=== PATIENT | female | born 2000 | race Hispanic/Latino ===

== ENCOUNTER → 2024-06-23 13:37 | Outpatient (CLI) | payer OTHER, SELFPAY ==
--- NOTE | 2024-06-23 13:38 | DI.US.S_ITS ---
PROCEDURE: US OB >= 14 WEEKS FETUS INDICATIONS: 20 wk anatomy scan OUTSIDE/PRIOR DATING DATA: Last menstrual period (LMP): 02/08/24. LMP-based estimated date of delivery (JOCELYN): 11/14/24. First dating scan (date and location): 04/14/24. Estimated date of delivery (JOCELYN) from first dating scan: 11/16/24. TECHNIQUE: Real-time scanning was performed of the fetus, with image documentation and biometric measurements. Endovaginal scanning: Not needed COMPARISON: None. FINDINGS: General: A single living intrauterine gestation is present. Presentation: Transverse head left. Placenta: Placental position is posterior , without previa. Amniotic fluid index: 14.3 cm, normal range is 5-24 cm. Single deepest vertical pocket is 4.3 cm. heart rate: 144 beats per minute. Maternal cervical canal: 3.3 cm long. Normal lower limit is 2.5 cm. biometrics: Biparietal diameter: 4.5 cm, 19 weeks 4 days Head circumference: 16.0 cm, 18 weeks 6 days Abdominal circumference: 14.8 cm, 20 weeks 1 day Femur length: 3.2 cm, 20 weeks 0 days Clinically estimated gestational age: 19 weeks 3 days Composite gestational age from present scan: 19 weeks 5 days Estimated weight and percentile: 322 g, 75th percentile Anatomic survey: Neuro: Ventricles are non-dilated at less than 10 mm. Cisterna magna is normal at 3-11 mm. Cerebellum is normal in size and morphology. Nuchal skin fold: Normal at less than 6 mm between 14-21 weeks gestational age. Face: Nose and lips, facial profile are normal. Spine: No evidence for spina bifida. Heart: 4-chambered heart is present, with normal ventricular outflow tracts. Diaphragm: Diaphragm is intact. Stomach: Left-sided stomach is present. Kidneys: No hydronephrosis. Normal is less than 5 mm in 2nd trimester, less than 7 mm in 3rd trimester. Cord: 3-vessel cord has orthotopic insertion. Bladder: Normal in size. Extremities: All 4 extremities identified. IMPRESSION: Single living intrauterine gestation documented with appropriate interval growth and with the delivery date projected to be centered on 11/16/24. Normal survey of anatomy. We strive to produce accurate, complete, and clear reports of imaging services. To assist us in improving patient care, this report was composed using standard report templates and voice recognition software. Therefore, it may contain abnormal punctuation, insertions and/or omissions. Occasional wrong-word or sound-alike substitutions may occur. Though we review the report and make efforts to correct it, we do recommend that the report be read carefully in proper context to recognize any text inaccuracies. Dictated by: Deonte Minor M.D. on 06/23/2024 at 16:40 Approved by: Deonte Minor M.D. on 06/23/2024 at 16:43
== END ==
PROVIDERS: PCP Family Medicine; Referring Provider Student in an Organized Health Care Education/Training Program; Visit Provider Student in an Organized Health Care Education/Training Program
DX: Z34.02 Encounter for supervision of normal first pregnancy, second trimester (principal); Z3A.19 19 weeks gestation of pregnancy
CPT/HCPCS: 76811

== ENCOUNTER → 2024-07-07 11:06 | Outpatient (CLI) | payer OTHER, SELFPAY ==
[2024-07-07 12:21] LABS: Add Manual Diff / Slide Review NO; Basophils Absolute Auto 0 /uL (0-100); Basophils Percent Auto 0.3 % (0-2); Eosinophils Absolute Auto 100 /uL (0-450); Eosinophils Percent Auto 1.1 % (2-4); Hematocrit 32.3 % (36-46); Hemoglobin 11.3 g/dL (12.0-16.0); Lymphocytes Absolute Auto 2100 /uL (1100-4500); Lymphocytes Percent Auto 24.2 % (25-40); Mean Corpuscular HGB Conc 34.9 % (30-36); Mean Corpuscular Volume 88.8 fL (80-100); Monocytes Absolute Auto 700 /uL (0-900); Monocytes Percent Auto 7.6 % (3-14); Neutrophils Absolute Auto 5800 /uL (1500-7000); Neutrophils Percent Auto 66.8 % (50-75); Platelet Count 281 X10^3/uL (150-400); Red Blood Cell Count 3.64 X10^6/uL (4.0-5.2); Red Cell Distribution Width 13.2 % (11.6-14.8); White Blood Cell Count 8.6 X10^3/uL (4.5-11.0)
[2024-07-07 14:00] LABS: Appearance Urine UA CLEAR; Bilirubin Urine UA NEGATIVE (NEGATIVE); Color Urine UA YELLOW; Glucose Urine UA NEGATIVE (Negative); Ketones Urine UA NEGATIVE (NEGATIVE); Leukocyte Esterase Urine UA 2+ (NEGATIVE); Nitrite Urine UA NEGATIVE (Negative); Occult Blood Urine UA NEGATIVE (Negative); Protein Urine UA NEGATIVE (Negative); Specific Gravity Urine UA <=1.005 (1.000-1.035); Urobilinogen Urine UA 0.2 E.U./dL (0.2)
[2024-07-07 14:20] LABS: Bacteria Urine Many (>30); Culture Indicated Urine Cult Not Indicated; RBC Urine None Seen (0-5/HPF); Squamous Epithelial Cell Urine 0-1 /HPF (0-5/HPF); Urine Volume 10mL (spun); WBC Urine 1-5/HPF (0-5/HPF)
[2024-07-07 22:15] LABS: Hepatitis B Surface Antigen NEGATIVE s/c (NEGATIVE); Rubella Antibody IgG 7.5 IU/mL (>15)
[2024-07-07 23:13] LABS: HIV 1 & 2 Ab/Ag 4th Gen Combo NEGATIVE (NEGATIVE); Hep C Virus Ab w/Reflex Quant NEGATIVE s/c (NEGATIVE)
[2024-07-08 07:09] LABS: RPR Screen Non Reactive (Non Reactive)
[2024-07-08 09:13] LABS: Varicella IgG Antibody Reactive (Non Reactive)
[2024-07-10 14:08] LABS: AFP, Serum 96.3 ng/mL (.); Calc Gestational Age Ultrasound (.); Estriol, Free 2.64 ng/mL (.); Inhibin A, MoM 1.78 (.); Maternal Ethnicity Other (.); Maternal Weight 128 lbs (.); Number of Fetuses No (.); OSBR Risk 1 IN 426 (.); Results Report (.); Test Results *Screen Negative* (.); hCG, MoM 0.83 (.); hCG, Serum 31347 mIU/mL (.)
== END ==
PROVIDERS: PCP Family Medicine; Referring Provider Student in an Organized Health Care Education/Training Program; Visit Provider Student in an Organized Health Care Education/Training Program
DX: Z34.00 Encounter for supervision of normal first pregnancy, unspecified trimester (principal); Z3A.17 17 weeks gestation of pregnancy
CPT/HCPCS: 36415; 80055; 81003; 81015; 82105; 82677; 84702; 86336; 86787; 86803; 86850; 86900; 86901; 87086; 87389

== ENCOUNTER → 2024-08-04 07:33 | Outpatient (CLI) | payer OTHER, SELFPAY ==
[2024-08-04 09:42] LABS: Hematocrit 34.3 % (36-46); Hemoglobin 11.7 g/dL (12.0-16.0)
[2024-08-04 11:03] LABS: GTT (PREG) 1 Hour PP 50gm Dose 56 mg/dL (76-139)
== END ==
PROVIDERS: PCP Family Medicine; Referring Provider Student in an Organized Health Care Education/Training Program; Visit Provider Student in an Organized Health Care Education/Training Program
DX: Z34.92 Encounter for supervision of normal pregnancy, unspecified, second trimester (principal); Z3A.24 24 weeks gestation of pregnancy
CPT/HCPCS: 82950; 85014; 85018

== ENCOUNTER → 2024-09-19 10:50 | Outpatient (CLI) | payer OTHER, SELFPAY | PROVIDERS: PCP Family Medicine; Visit Provider Student in an Organized Health Care Education/Training Program | DX: R39.89 Other symptoms and signs involving the genitourinary system (principal) | CPT/HCPCS: 87086; 87210 ==

== ENCOUNTER → 2024-10-17 08:58 | Outpatient (CLI) | payer OTHER, SELFPAY ==
[2024-10-18 08:55] LABS: Strep Grp B PCR NEG for Grp B Strep
== END ==
PROVIDERS: PCP Family Medicine; Visit Provider Student in an Organized Health Care Education/Training Program
DX: Z3A.36 36 weeks gestation of pregnancy (principal)
CPT/HCPCS: 87653

== ENCOUNTER → 2024-10-17 11:04 | Outpatient (CLI) | payer OTHER, SELFPAY ==
[2024-10-17 12:59] LABS: Alanine Aminotransferase 115 IU/L (<35); Albumin 3.5 g/dL (3.5-5.0); Albumin Globulin Ratio 1.3 (1.0-2.8); Alkaline Phosphatase 207 U/L (38-126); Aspartate Aminotransferase 72 IU/L (14-36); BUN Creatinine Ratio 14.3 (6-22); Bilirubin Total 0.6 mg/dL (0.2-1.3); Blood Urea Nitrogen 7 mg/dL (7-17); Calcium 9.3 mg/dL (8.4-10.2); Carbon Dioxide 19 mmol/L (22-32); Chloride 108 mmol/L (98-107); Estimated Glomerular Filt Rate > 60 mL/min (>60); Globulin 2.8 g/dL (1.7-4.1); Glucose 83 mg/dL (70-100); HEMOLYSIS < 15 (0-50); Potassium 4.3 mmol/L (3.4-5.1); Sodium 135 mmol/L (137-145); Total Protein 6.3 g/dL (6.3-8.2)
[2024-10-17 17:08] LABS: Add Manual Diff / Slide Review NO; Basophils Absolute Auto 0 /uL (0-100); Basophils Percent Auto 0.4 % (0-2); Eosinophils Absolute Auto 0 /uL (0-450); Eosinophils Percent Auto 0.3 % (2-4); Hemoglobin 13.3 g/dL (12.0-16.0); Lymphocytes Absolute Auto 1700 /uL (1100-4500); Mean Corpuscular HGB Conc 34.1 % (30-36); Monocytes Absolute Auto 400 /uL (0-900); Monocytes Percent Auto 6.2 % (3-14); Neutrophils Absolute Auto 5000 /uL (1500-7000); Neutrophils Percent Auto 69.1 % (50-75); Platelet Count 276 X10^3/uL (150-400); Red Blood Cell Count 4.43 X10^6/uL (4.0-5.2); White Blood Cell Count 7.2 X10^3/uL (4.5-11.0)
[2024-10-17 17:15] LABS: Lactate Dehydrogenase 216 U/L (120-246)
[2024-10-17 17:25] LABS: Appearance Urine UA CLEAR; Bilirubin Urine UA NEGATIVE (NEGATIVE); Color Urine UA YELLOW; Glucose Urine UA NEGATIVE (Negative); Ketones Urine UA NEGATIVE (NEGATIVE); Leukocyte Esterase Urine UA 2+ (NEGATIVE); Nitrite Urine UA NEGATIVE (Negative); Occult Blood Urine UA NEGATIVE (Negative); Protein Urine UA NEGATIVE (Negative); Urobilinogen Urine UA 0.2 E.U./dL (0.2)
[2024-10-17 17:29] LABS: Creatinine Urine Random 30.24 mg/dL; Protein (Total) Urine Random 15 mg/dL (0-12); Protein Creatinine Ratio Urine 0.49 GRAM/24H
[2024-10-17 17:37] LABS: pH Urine UA 7.5 (4.5-8.0)
[2024-10-17 18:08] LABS: Bacteria Urine Few (2-10); Culture Indicated Urine Specimen Cultured; RBC Urine None Seen (0-5/HPF); Squamous Epithelial Cell Urine 5-10 /HPF (0-5/HPF); Urine Volume 10mL (spun); WBC Urine 5-10/HPF (0-5/HPF)
[2024-10-18 11:36] LABS: Bile Acids 26.5 umol/L (0.0-10.0)
== END ==
PROVIDERS: PCP Family Medicine; Referring Provider Student in an Organized Health Care Education/Training Program; Visit Provider Student in an Organized Health Care Education/Training Program
DX: L29.9 Pruritus, unspecified (principal); R39.89 Other symptoms and signs involving the genitourinary system; R79.89 Other specified abnormal findings of blood chemistry
CPT/HCPCS: 36415; 80053; 81001; 82239; 82570; 83615; 84156; 85025; 87086

== ENCOUNTER 2024-10-17 15:04 | Outpatient (CLI) | payer OTHER, SELFPAY ==
--- NOTE | 2024-10-17 17:19 | P.TNLD_ITS ---
Visit Information Visit Information Date of evaluation: 10/17/24 Primary OB Provider: Latisha Hernandez Reason for Evaluation: Yes other Comments/Additional reasons for admission: Patient is a 24 yo G1 at 36 wks who was seen today in clinic for increased itching. Bile acids and CMP drawn showing elevated LFTs. Sent to L&D for additional bloodwork and NST. [facility] Medical History (Updated 10/17/24 @ 13:48 by Latisha Hernandez MD) Dyspareunia Surgical History (Updated 04/28/24 @ 19:57 by Sammie Davidson) Anesthesia History of cholecystectomy (~2020) Family History (Updated 04/28/24 @ 20:00 by Sammie Davidson) Mother History of appendectomy Father Hypertension Stroke Heart disease Grandmother Hypertension Grandfather Diabetes mellitus Grandmother Hypertension Aunt Breast cancer Grandfather Heart disease Hypertension Social History (System 03/29/24 @ 10:30 by Miladis Bone) marital status: number of children: 0 household members: spouse lives independently: Yes caregiver/support person: No housing: condominium (duplex base housing) pets and animals: Yes education level: college (some college) 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 current occupational exposures/hazards: Yes special gilma needs: No travel history: recent (domestic only) seatbelt use: always water heater temp set < 120 deg: Yes working smoke detector in home: Yes fire extinguisher in home: Yes carbon monox detector in home: Yes firearms in home: No do you feel safe at home: Yes Smoking Status: Never smoker second hand exposure: Yes ( vapes) alcohol intake: former (only occasionally when not ) substance use type: does not use during the past year weight has: remained stable well-balanced diet: rarely or never daily servings fruits/ve-4 (usually 1 serving of each) caffeine: Yes (aware of 200mg limit) Type(s) of exercise: walking and weight lifting Evaluation Evaluation Baseline heart rate: 135 Variability: Average (6-10) monitor accelerations: Present Monitor Decelerations: Absent Category of Tracing: Reactive Diagnosis, Plan/Disposition Plan/Disposition Plan: 24 yo G1 at 36 weeks for eval of elevated LFTs. NST reactive. CBC without signs of HELLP syndrome. Awaiting bile acids. Okay to discharge home with close follow up. OB Disposition: home
== END 2024-10-17 16:30 | disposition home or self-care (01) ==
LOC: LABOR 15:29 → OB 10-18 14:11
PROVIDERS: PCP Family Medicine; Referring Provider Student in an Organized Health Care Education/Training Program; Visit Provider Student in an Organized Health Care Education/Training Program
DX: O26.893 Other specified pregnancy related conditions, third trimester (principal); L29.9 Pruritus, unspecified; R79.89 Other specified abnormal findings of blood chemistry; Z3A.36 36 weeks gestation of pregnancy
CPT/HCPCS: 36415; 59025; 80053; 81001; 82239; 82570; 83615; 84156; 85025; 87086; 87653; G0378; G0379

== ENCOUNTER 2024-10-20 13:24 | Observation (INO) | payer OTHER, SELFPAY ==
--- NOTE | 2024-10-20 13:39 | DI.US.S_ITS ---
PROCEDURE: US OB BIOPHYSICAL PROFILE INDICATIONS: cholestasis OUTSIDE/PRIOR DATING DATA: Last menstrual period (LMP): 02/08/2024. LMP-based estimated date of delivery (JOCELYN): 11/14/2024. First dating scan (date and location): 04/14/2024. Estimated date of delivery (JOCELYN) from first dating scan: 11/16/2024. The calculations are made using the clinical JOCELYN of 11/14/2024. TECHNIQUE: Real-time scanning was performed of the fetus, with image documentation and biometric measurements. Biophysical profile was also obtained. COMPARISON: Ob ultrasound 06/23/2024. FINDINGS: General: A single living intrauterine gestation is present. Presentation: Vertex. Placenta: Placental position is fundal , without previa. Amniotic fluid index: 7.6 cm, normal range is 5-24 cm. Single deepest vertical pocket is 4.7 cm. heart rate: 141 beats per minute. Maternal cervical canal: Not assessed biometrics: Composite gestational age from present scan: 36 weeks, 3 days Biophysical profile: Tone: 2 points. Movement: 2 points. Respiration: 2 points. Largest pocket of fluid: 2 points. IMPRESSION: Single intrauterine gestation. Normal biophysical profile of 8/8. Approved by: Natalia Funes M.D.,Ph.D. on 10/20/2024 at 18:08
[2024-10-20 14:36] LABS: Add Manual Diff / Slide Review NO; Basophils Absolute Auto 0 /uL (0-100); Basophils Percent Auto 0.5 % (0-2); Eosinophils Absolute Auto 0 /uL (0-450); Eosinophils Percent Auto 0.5 % (2-4); Hematocrit 36.5 % (36-46); Hemoglobin 12.6 g/dL (12.0-16.0); Lymphocytes Absolute Auto 1700 /uL (1100-4500); Lymphocytes Percent Auto 23.6 % (25-40); Mean Corpuscular HGB Conc 34.5 % (30-36); Mean Corpuscular Hemoglobin 30.1 PG (26-34); Mean Corpuscular Volume 87.3 fL (80-100); Monocytes Absolute Auto 500 /uL (0-900); Monocytes Percent Auto 7.1 % (3-14); Neutrophils Absolute Auto 5000 /uL (1500-7000); Neutrophils Percent Auto 68.3 % (50-75); Platelet Count 270 X10^3/uL (150-400); Red Blood Cell Count 4.18 X10^6/uL (4.0-5.2); Red Cell Distribution Width 12.8 % (11.6-14.8); White Blood Cell Count 7.3 X10^3/uL (4.5-11.0)
[2024-10-20 14:51] LABS: Alanine Aminotransferase 86 IU/L (<35); Albumin 3.7 g/dL (3.5-5.0); Albumin Globulin Ratio 1.1 (1.0-2.8); Alkaline Phosphatase 220 U/L (38-126); Aspartate Aminotransferase 59 IU/L (14-36); BUN Creatinine Ratio 16.3 (6-22); Bilirubin Total 0.7 mg/dL (0.2-1.3); Blood Urea Nitrogen 8 mg/dL (7-17); Calcium 9.4 mg/dL (8.4-10.2); Carbon Dioxide 20 mmol/L (22-32); Chloride 107 mmol/L (98-107); Estimated Glomerular Filt Rate > 60 mL/min (>60); Globulin 3.4 g/dL (1.7-4.1); Glucose 82 mg/dL (70-100); HEMOLYSIS < 15 (0-50); Potassium 3.7 mmol/L (3.4-5.1); Sodium 136 mmol/L (137-145); Total Protein 7.1 g/dL (6.3-8.2)
[2024-10-22 12:08] LABS: Bile Acids 56.6 umol/L (0.0-10.0)
== END 2024-10-20 15:45 | disposition home or self-care (01) ==
PROVIDERS: Admitting Provider Student in an Organized Health Care Education/Training Program; PCP Family Medicine; Referring Provider Student in an Organized Health Care Education/Training Program; Visit Provider Student in an Organized Health Care Education/Training Program
DX: Z34.03 Encounter for supervision of normal first pregnancy, third trimester (principal); Z3A.36 36 weeks gestation of pregnancy
CPT/HCPCS: 36415; 59025; 76819; 80053; 82239; 85025; G0378; G0379

== ENCOUNTER 2024-10-23 10:03 | Inpatient (IN) | payer OTHER, SELFPAY ==
[2024-10-23 11:40] LABS: Add Manual Diff / Slide Review NO; Basophils Absolute Auto 0 /uL (0-100); Basophils Percent Auto 0.5 % (0-2); Eosinophils Absolute Auto 0 /uL (0-450); Eosinophils Percent Auto 0.5 % (2-4); Hematocrit 36.4 % (36-46); Hemoglobin 12.6 g/dL (12.0-16.0); Lymphocytes Absolute Auto 1700 /uL (1100-4500); Lymphocytes Percent Auto 18.1 % (25-40); Mean Corpuscular HGB Conc 34.6 % (30-36); Mean Corpuscular Hemoglobin 30.3 PG (26-34); Mean Corpuscular Volume 87.5 fL (80-100); Monocytes Absolute Auto 600 /uL (0-900); Monocytes Percent Auto 6.2 % (3-14); Neutrophils Absolute Auto 6900 /uL (1500-7000); Neutrophils Percent Auto 74.7 % (50-75); Platelet Count 267 X10^3/uL (150-400); Red Blood Cell Count 4.16 X10^6/uL (4.0-5.2); Red Cell Distribution Width 12.9 % (11.6-14.8); White Blood Cell Count 9.2 X10^3/uL (4.5-11.0)
[2024-10-23] MEDS: miSOPROStoL 25 MCG TABLET VAG ×3 (12:04→20:28)
--- NOTE | 2024-10-23 13:41 | P.HPOB_ITS ---
OB HPI Date/Time Date of admission: 10/23/24 Date Patient Seen: 10/23/24 Time Patient Seen: 12:00 History of Present Condition Chief complaint: INDUCATION JOCELYN Calculator 2 Estimated Delivery Date Method Current WG Current Estimate 11/14/24 LMP (Certain) 36w 6d : 1 Narrative: This is a 24 yo G1 at 36w6d. Uncomplicated until 36th week when she presented with itching of palms and soles. Bile acids elevated to 26, with elevation of LFTs. NST reactive x 2 in week 36, BPP 8/8. Elevation of bile acids to 56 necessitating induction. No contractions on admission. care: good care Dating criteria OB: LMP confirmed by 1st trimester US Ultrasounds: normal 1st trimester US and normal mid trimester US Obstetrical complications: other (cholestasis) Indications Indication for induction OB: medical complication (cholestasis) Preadmission Labs Last OB Lab Results: 2 Blood Type O Positive 10/23/24 13:35 Antibody Screen Negative 10/23/24 13:35 Hct 36.4 % (36-46) 10/23/24 11:02 Hgb 12.6 g/dL (12.0-16.0) 10/23/24 11:02 Hep Bs Antigen Negative s/c (NEGATIVE) 07/07/24 11:28 Hepatitis C Antibody Negative s/c (NEGATIVE) 07/07/24 11:28 Rubella Antibody 7.5 IU/mL (>15) L 07/07/24 11:28 VZV IgG Antibody Reactive (Non Reactive) 07/07/24 11:28 Glucose 1 Hr 50 gm 56 mg/dL (76-139) L 08/04/24 08:49 Group B Strep (PCR) Neg for grp b strep 10/17/24 10:45 Glucose Tolerance Testin hr Genetic Screens: Quad screen: Normal Evaluation Evaluation Baseline heart rate: 145 Variability: Average (6-10) monitor accelerations: Present Monitor Decelerations: Absent Category of Tracing: Reactive Status: Category l Dilation (cm): 0 Effacement (%): 0 Dilation: Closed Effacement: 0-30% station: -3 Position of cervix: posterior [facility] Medical History (Updated 10/17/24 @ 13:48 by Latisha Hernandez MD) Dyspareunia Surgical History (Updated 04/28/24 @ 19:57 by Sammie Davidson) Anesthesia History of cholecystectomy (~2020) Family History (Updated 04/28/24 @ 20:00 by Sammie Davidson) Mother History of appendectomy Father Hypertension Stroke Heart disease Grandmother Hypertension Grandfather Diabetes mellitus Grandmother Hypertension Aunt Breast cancer Grandfather Heart disease Hypertension Social History (System 03/29/24 @ 10:30 by Miladis Bone) marital status: number of children: 0 household members: spouse lives independently: Yes caregiver/support person: No housing: condominium (duplex base housing) pets and animals: Yes education level: college (some college) 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 current occupational exposures/hazards: Yes special gilma needs: No travel history: recent (domestic only) seatbelt use: always water heater temp set < 120 deg: Yes working smoke detector in home: Yes fire extinguisher in home: Yes carbon monox detector in home: Yes firearms in home: No do you feel safe at home: Yes Smoking Status: Never smoker second hand exposure: Yes ( vapes) alcohol intake: former (only occasionally when not ) substance use type: does not use during the past year weight has: remained stable well-balanced diet: rarely or never daily servings fruits/ve-4 (usually 1 serving of each) caffeine: Yes (aware of 200mg limit) Type(s) of exercise: walking and weight lifting Meds Home Medications and Allergies Home Medications Medication Instructions Recorded Confirmed Type vitamin-ferrous sulfate tab PO 04/03/24 10/20/24 History 27 mg iron-folic acid 0.8 mg tablet ondansetron 4 mg disintegrating 4 mg PO Q6H PRN nausea and 05/12/24 10/20/24 Rx tablet vomiting #30 tabs Allergies Allergy/AdvReac Type Severity Reaction Status Date / Time No Known Drug Allergies Allergy Verified 10/20/24 13:05 Objective Labs 10/23/24 11:02 10/23/24 13:35 Labs: Laboratory Results - last 24 hr 10/23/24 11:02 WBC 9.2 RBC 4.16 Hgb 12.6 Hct 36.4 MCV 87.5 MCH 30.3 MCHC 34.6 RDW 12.9 Plt Count 267 Neut % (Auto) 74.7 Lymph % (Auto) 18.1 L Caroline % (Auto) 6.2 Eos % (Auto) 0.5 L Baso % (Auto) 0.5 Neut # (Auto) 6900 Lymph # (Auto) 1700 Caroline # (Auto) 600 Eos # (Auto) 0 Baso # (Auto) 0 Assessment and Plan Assessment and Plan Assessment and Plan narrative: 24 yo G1 at 36w6d here with cholestasis of . Bile acids 56. AST 55, ALT 69. SVE closed/thick/high. Induction with misoprostol. -vag miso 25 mcg Time-Based Coding :: 30 minutesspent with patient and on the chart (including review of chart, obtaining history, exam, reviewing outside data, placing orders, documenting exam and treatment plan, and counseling patient) on 10/23/24.
[2024-10-23 13:59] LABS: Alanine Aminotransferase 69 IU/L (<35); Albumin 3.7 g/dL (3.5-5.0); Albumin Globulin Ratio 1.1 (1.0-2.8); Alkaline Phosphatase 190 U/L (38-126); Aspartate Aminotransferase 55 IU/L (14-36); BUN Creatinine Ratio 18.6 (6-22); Bilirubin Total 0.4 mg/dL (0.2-1.3); Blood Urea Nitrogen 11 mg/dL (7-17); Calcium 9.7 mg/dL (8.4-10.2); Carbon Dioxide 25 mmol/L (22-32); Chloride 104 mmol/L (98-107); Estimated Glomerular Filt Rate > 60 mL/min (>60); Globulin 3.4 g/dL (1.7-4.1); Glucose 89 mg/dL (70-100); HEMOLYSIS < 15 (0-50); Potassium 4.5 mmol/L (3.4-5.1); Sodium 135 mmol/L (137-145); Total Protein 7.1 g/dL (6.3-8.2)
--- NOTE | 2024-10-23 17:07 | PM.OBPNLAB ---
Pain Control Pain control: tolerating well Pelvic Exam Dilation (cm): 0 Effacement (%): 0 station: -3 Status status: Category l Heart Rate Baseline: 145 Monitor Accelerations: Present Monitor Decelerations: Absent Assessment and Plan Assessment: induction ongoing Plan: begin patient augmentation Comments: 24 yo G1 at 36w6d with IOL for cholestasis. -s/p 1 vag miso 25 mcg -whtilock balloon placed at 4:30pm, second dose of vag miso placed
[2024-10-24] MEDS: LACTATED RINGERS 1,000 ML 100 ML IV (01:18)
[2024-10-24] MEDS: fentaNYL 100 MCG/2 ML INJ IV (01:24)
[2024-10-24] MEDS: LACTATED RINGERS 1,000 ML 75 ML IV (02:22)
--- NOTE | 2024-10-24 05:29 | P.PCN_ITS ---
Regional [facility] <An Cotter CRNA - Last Filed: 10/25/24 08:20> Pre-procedure Procedure: Continuous Lumbar Epidural for L&D Attending OB provider: Latisha Hernandez PMH/ROS narrative: Healthy in active labor requesting KAREN for labor pain. PSH/Anesthesia history narrative: Cholecystectomy without anesthetic complication Exam narrative: See pre-anesthesia evaluation form. ASA Class: II Labs: Hct 36.4 % (36-46) 10/23/24 11:02 Plt Count 267 X10^3/uL (150-400) 10/23/24 11:02 Medications: Current Medications Generic Name Dose Route Start Last Admin Trade Name Freq PRN Reason Stop Dose Admin Carboprost Tromethamine 250 mcg 10/23/24 11:17 Carboprost 250 Mcg/Ml Ampul IM Q90M PRN Bleeding Diphenhydramine HCl 25 mg 10/24/24 05:25 Diphenhydramine 50 Mg/Ml Vial IV 10/25/24 05:25 Q3HR PRN PRURITUS Diphenhydramine HCl 25 mg 10/24/24 05:26 Diphenhydramine 50 Mg/Ml Vial IV Q10M PRN Pruritis Ephedrine Sulfate 10 mg 10/24/24 05:26 Ephedrine 50 Mg/Ml Vial IV Q5M PRN Blood pressure decrease more than 20% of baseline. Fentanyl 100 mcg 10/23/24 11:17 10/24/24 01:24 Fentanyl 100 Mcg/2 Ml Inj IV 100 mcg Q1H PRN Administration Pain, Severe (7-10) Tranexamic Acid 1,000 mg/ 100 mls @ 600 mls/hr 10/23/24 11:17 Sodium Chloride IV NOW PRN Bleeding Oxytocin/Lactated Ringer's 30 unit in 500 mls @ 200 mls/hr 10/23/24 11:17 Oxytocin Premix IV CONT PRN Bleeding Protocol FENT 2MCG/ML BUPIV 0.125% EPI 200 mcg in 100 mls @ 8 mls/hr 10/24/24 05:20 Fentanyl/Bupiv/Ns 2mcg/Ml - 0.125% EPIDURAL CONT FAISAL Lidocaine HCl 20 ml 10/23/24 11:17 Lidocaine 1% 20 Ml INJ INTRA-OP PRN Post Delivery Methylergonovine Maleate 0.2 mg 10/23/24 11:17 Methylergonovine 0.2 Mg/Ml Vial IM NOW PRN Bleeding Methylergonovine Maleate 0.2 mg 10/23/24 11:17 Methylergonovine 0.2 Mg Tablet PO Q6HR PRN Heavy Bleeding Mineral Oil 30 ml 10/23/24 11:17 Mineral Oil 30 Ml Udc TOP PRN PRN Version Misoprostol 800 mcg 10/23/24 11:17 Misoprostol 200 Mcg Tablet SD NOW PRN Bleeding Misoprostol 25 mcg 10/23/24 11:17 10/23/24 20:28 Misoprostol 25 Mcg Tablet VAG 25 mcg Q4H PRN Administration cervical ripening Misoprostol 400 mcg 10/23/24 11:17 Misoprostol 200 Mcg Tablet SL NOW PRN Bleeding Nalbuphine HCl 5 mg 10/24/24 05:25 Nalbuphine 20 Mg/Ml Ampul IV Q6H PRN Pruritus Nalbuphine HCl 2.5 mg 10/24/24 05:26 Nalbuphine 20 Mg/Ml Ampul IV Q10M PRN Pruritis Naloxone HCl 0.2 mg 10/23/24 11:17 Naloxone 0.4 Mg/Ml Vial IV Q2MIN PRN Opiate Reversal Naloxone HCl 0.4 mg 10/24/24 05:25 Naloxone 0.4 Mg/Ml Vial IV Q2MIN PRN Opiate Reversal Ondansetron HCl 4 mg 10/23/24 11:17 Ondansetron 4 Mg/2 Ml Inj IV Q4HR PRN Nausea And Vomiting Ondansetron HCl 4 mg 10/24/24 09:00 Ondansetron 4 Mg/2 Ml Inj IV 10/24/24 13:01 Q4HR FAISAL Oxytocin 10 unit 10/23/24 11:17 Oxytocin 10 Unit/Ml Vial IM NOW PRN Bleeding Allergies: Allergies Allergy/AdvReac Type Severity Reaction Status Date / Time No Known Drug Allergies Allergy Verified 10/20/24 13:05 Procedure Insertion date: 10/24/24 Insertion time: 05:08 Prep/Local: 1% lidocaine (5mL at skin. CHG to back for skin prep) Interspace: L2/3 Patient position: sitting Needle: 18 gauge Hustead (& 27g Pencan through dura layer for CSE. + CSF. 1mL 0.25% MPF bupivacaine instilled.) Loss of resistance with: saline DORIE at (cm): 6 Catheter placed at SKIN (cm): 10 Catheter in SPACE (cm): 4 Sensory level: T10 Insertion: Yes CSF, No Blood, No Paresthesia with insertion, No Paresthesia with injection and No Test dose reaction Initial Medications TEST DOSE time: 05:10 TEST DOSE: 1.5% lidocaine with epinephrine 1:200k (mL): 3 Infusion INFUSION: 0.125% bupivacaine and with fentanyl 2 mcg/mL Initial rate (mL/hr): 8 Post-procedure Anesthesia date START: 10/24/24 Anesthesia time START: 04:45 <Sheryl Holliday CRNA - Last Filed: 10/24/24 08:27> Post-procedure Anesthesia date END: 10/24/24 Anesthesia time END: 06:48 Post-procedure Anesthesia Assessment: Yes CV function: HR/BP stable, Yes Resp function: RR/sat/airway adequate, Yes Post-op hydration adequate, Yes Pain con trol adequate, Yes Nausea & vomiting absent, Yes Temperature > 36 C, Yes Mental status appropriate and Yes Anesthesia complications
[2024-10-24] MEDS: OXYTOCIN PREMIX 30 UNIT/500 ML PLAST..BAG IV (06:20)
[2024-10-24] MEDS: OXYTOCIN PREMIX 30 UNIT/500 ML PLAST..BAG 200 UNIT IV (06:53)
[2024-10-24] MEDS: miSOPROStoL 200 MCG TABLET 800 MCG PR (06:58)
[2024-10-24] MEDS: TRANEXAMIC ACID 1,000 MG in SODIUM CHLORIDE 0.9% 100 ML 600 MG IV (07:02)
--- NOTE | 2024-10-24 07:25 | PM.OBPRVD ---
Events: Labor Induction and Other (Cholestatis of ) Labor & Delivery Delivery date: 10/24/24 Delivery Time: 06:48 Intrapartal Events: None Cervical ripening method: other (miso +whitlock) Delivery augmentation: pitocin Delivery monitor: external FHT Route of delivery: L&D Laceration Description: Perineal - 2nd Degree Delivery repair: vicryl Estimated blood loss (mL): 600 Anesthesia Type: Epidural Narrative: This is a 24 yo G1 who was induced beginning yesterday at 36w6d for cholestasis of . uncomplicated prior to dx of cholestasis at 36 wks. Induction was with miso +whitlock bulb. Patient SROM and did not require pitocin for labor induction. Pitocin was used for delivery augmentation. Patient was found to be complete and pushed for approximately 45 minutes with excellent effort. She delivered a vigorous female infant at 6:48 am. Cord was clamped and cut by father at 3 minutes of life. Placenta delivered with fundal massage and gentle traction. pitocin bolus was started. There was a second degree perineal laceration noted. She had ongoing bleeding so 1000 mcg of rectal miso was given. Internal uterine massage was performed with minimal clot burden. TXA was given. Bleeding slowed to a trickle. EBL 600. Second degree laceration repaired with vicryl. Ancef 2g to be given for internal massage. Plan for aftercare: Routine care
[2024-10-24] MEDS: CEFAZOLIN 2 GM/100 ML PREMIX 100 ML IV (07:36)
[2024-10-24] MEDS: WITCH HAZEL/GLYCERIN PADS 1 EACH TOP (08:35)
[2024-10-24] MEDS: DERMOPLAST SPRAY 20% 60 ML 1 SPRAY TOP (08:35)
[2024-10-24] MEDS: LANOLIN OINT 7 GM 1 APPLIC TOP (08:36)
[2024-10-24] MEDS: ACETAMINOPHEN 325 MG TABLET 650 MG PO (08:36)
[2024-10-24] MEDS: IBUPROFEN 600 MG TABLET PO ×2 (13:25→19:54)
[2024-10-25] MEDS: IBUPROFEN 600 MG TABLET PO ×2 (06:50→12:40)
--- NOTE | 2024-10-25 07:42 | PM.OBDS.1 ---
Discharge Providers Provider Date of admission: 10/23/24 10:03 Discharge Date: 10/25/24 Primary care physician: Riley Becerril MD Consults: 10/23/24 11:17 Consult to Anesthesiology Urgent Comment: Consulting Provider: Anesthesiologist Reason for consultation: Epidural 10/25/24 07:23 Consult to Stone Engraver Routine Comment: Discharge provider: Olinda Marmolejo MD Summary Hospital Course Date Patient Seen: 10/25/24 Time Patient Seen: 07:43 Hospital Course: 24 yo G1 now P1 who was admitted at 36w6d for mIOL for IHCP. Prior to arrival, pt was dx after presenting with itching and finding elevated bile acids and LFT elevations on labs. She was started on vaginal Miso for induction. Porras balloon was then placed. She ruptured spontaneously and progressed well. She delivered a viable female infant via . PP she was given rectal cytotec and TXA and internal massage was performed for bleeding, EBL of 600. She received ANcef for ppx. she is doing well. She has had minimal bleeding. Pain is well controlled. She is breast feeding with some difficulty but has met with for assistance. She will follow up with primary OB For continued LFT trending to ensure the elevation resolves Peripartum Data Delivery Method: Natural Vaginal Laceration Description: Perineal - 2nd Degree complications: uterine atony (bleeding of 600mL tx with TXA, rectal cytotec and massage ) Status at Discharge Cognitive/behavioral status at discharge: oriented Functional status at discharge: independent ambulation Overall status at discharge: patient is back to baseline Time Spent with Patient Time attestation: Total time spent providing and/or coordinating discharge services: Time spent: Less than 30 minutes Objective Labs 10/23/24 11:02 10/23/24 13:35 Exam Narrative Exam Narrative: GEN: Healthy appearing, well-developed, NAD. PSYCH: Good Judgment. AOx3. Normal memory, mood, and affect HEENT: -Head: NC/AT -Eyes: No discharge or redness CV: warm and well perfused, RRR, no murmurs LUNGS: breathing comfortably on RA, CTAB SKIN: Warm, well perfused. No skin rashes or abnormal lesions ABD: fundus firm below umbilicus MSK: No deformities NEURO: No focal deficits Discharge Plan Discharge Plan Patient Disposition: Home Discharge orders & Medications Prescriptions: Continued ondansetron 4 mg tablet,disintegrating 4 mg PO Q6H PRN (Reason: nausea and vomiting) Qty: 30 0RF vit-ferrous sulfat-FA 27 mg iron- 0.8 mg tablet PO Follow up/Referrals: Riley Becerril MD [Primary Care Provider] - Latisha Hernandez MD [Physician] - 6 Weeks (Follow up with Dr. Hernandez on December 05, at 3:00pm. Please arrive 15 minutes early. ) Visit Report/Discharge Packet Instructions: DI for Labor and Delivery, Vaginal Stand Alone Forms: Discharge: Care, Patient Portal/API, Stroke Signs & Symptoms Discharge Data Primary Care Provider: Riley Becerril Discharges patient from system. Discharge Date/Time: 10/25/24 13:20
[2024-10-25] MEDS: WITCH HAZEL/GLYCERIN PADS 1 EACH TOP (12:40)
[2024-10-25 13:50] VITALS: BP 111/76; PULSE 83; RESP 16; TEMP 36.4
== END 2024-10-25 13:20 | disposition home or self-care (01) | DRG 806 ==
PROVIDERS: Admitting Provider Student in an Organized Health Care Education/Training Program; PCP Family Medicine; Referring Provider Student in an Organized Health Care Education/Training Program; Visit Provider Student in an Organized Health Care Education/Training Program
DX: O26.643 Intrahepatic cholestasis of pregnancy, third trimester (principal); O72.1 Other immediate postpartum hemorrhage; Z37.0 Single live birth; Z3A.36 36 weeks gestation of pregnancy; O70.1 Second degree perineal laceration during delivery
CPT/HCPCS: 36415; 59050; 59200; 59400; 80053; 85025; 86850; 86900; 86901; G0379; J0690; J2590; J3010; S0191

== ENCOUNTER → 2024-12-05 12:13 | Outpatient (CLI) | payer OTHER, SELFPAY ==
[2024-12-05 13:11] LABS: Alanine Aminotransferase 57 IU/L (<35); Albumin 4.5 g/dL (3.5-5.0); Albumin Globulin Ratio 1.5 (1.0-2.8); Alkaline Phosphatase 113 U/L (38-126); Aspartate Aminotransferase 46 IU/L (14-36); BUN Creatinine Ratio 29.1 (6-22); Bilirubin Total 0.5 mg/dL (0.2-1.3); Blood Urea Nitrogen 16 mg/dL (7-17); Carbon Dioxide 26 mmol/L (22-32); Chloride 101 mmol/L (98-107); Estimated Glomerular Filt Rate > 60 mL/min (>60); Globulin 3.1 g/dL (1.7-4.1); Glucose 91 mg/dL (70-100); HEMOLYSIS < 15 (0-50); Potassium 4.3 mmol/L (3.4-5.1); Sodium 138 mmol/L (137-145); Total Protein 7.6 g/dL (6.3-8.2)
== END ==
PROVIDERS: PCP Student in an Organized Health Care Education/Training Program; Referring Provider Student in an Organized Health Care Education/Training Program; Visit Provider Student in an Organized Health Care Education/Training Program
DX: O26.649 Intrahepatic cholestasis of pregnancy, unspecified trimester (principal)
CPT/HCPCS: 36415; 80053

== ENCOUNTER → 2025-05-10 16:03 | Outpatient (CLI) | payer OTHER, SELFPAY ==
[2025-05-10 17:50] LABS: TSH w/ Reflex to FT4 0.94 uIU/mL (0.47-4.68)
== END ==
PROVIDERS: PCP Student in an Organized Health Care Education/Training Program; Referring Provider Student in an Organized Health Care Education/Training Program; Visit Provider Student in an Organized Health Care Education/Training Program
DX: O90.89 Other complications of the puerperium, not elsewhere classified (principal); L65.0 Telogen effluvium
CPT/HCPCS: 36415; 84443